=== PATIENT | male | born 2000 | race Caucasian/White ===

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

== ENCOUNTER 2019-02-18 18:03 | Emergency (ER) | payer OTHER ==
[~2019-02-18] VITALS: Ht 190.5 cm; Wt 97.5 kg
[2019-02-18 18:05] VITALS: BP 146/77
[2019-02-18] MEDS ORDERED: ROBAXIN500 MG PO (18:44)
[2019-02-18] MEDS ORDERED: NAPROSYN500 MG PO (18:44)
== END 2019-02-18 19:21 | disposition home or self-care (01) ==
LOC: M.ERS 18:03
DX: S80.01XA Contusion of right knee, initial encounter (principal); Z88.1 Allergy status to other antibiotic agents; Z88.0 Allergy status to penicillin; F90.9 Attention-deficit hyperactivity disorder, unspecified type; V89.2XXA Person injured in unspecified motor-vehicle accident, traffic, initial encounter; Y92.89 Other specified places as the place of occurrence of the external cause; Y93.89 Activity, other specified; Y99.8 Other external cause status